=== PATIENT | female | born 1965 | race Asian ===

== ENCOUNTER 2017-04-03 12:44 | Outpatient (CLI) | payer OTHER ==
--- NOTE | 2017-04-03 13:50 | DIAGNOSTIC IMAGING REPORT ---
PROCEDURE: US COMPLETE PELVIC W/TRANSVAG INDICATION: PELVIC PAIN TECHNIQUE: Transabdominal and endovaginal delgadillo scale and color Doppler sonographic images of the female pelvis were obtained. COMPARISON: Pelvic ultrasound 07/29/2016 FINDINGS: TRANSABDOMINAL SCANS: The uterus is enlarged measuring 9.1 x 4.6 x 6.2 cm. Kidneys are normal. TRANSVAGINAL SCANS: The uterus is retroverted. Multiple fibroids are noted. They range in size from 13 mm to 24 mm. The endometrium measures 3.2 mm. Right ovary is normal measuring at 2.3 cm The left ovary is normal measuring 3.4 cm. IMPRESSION: 1. Multiple uterine fibroids ranging in size from 13 mm to 24 mm.
== END 2017-04-03 23:00 ==
LOC: US SRH 12:44
DX: R10.2 Pelvic and perineal pain (principal)